=== PATIENT | male | born 1955 | race Caucasian/White ===

== ENCOUNTER 2025-10-26 09:59 | Inpatient (IN) | payer MEDICARE ==
[~2025-10-26] VITALS: Ht 162.6 cm; Wt 55.8 kg
[2025-10-26] MEDS ORDERED: MIRALAX *UNIT DOSE* 17 GM PACKET PO PRN (11:00)
[2025-10-26] MEDS ORDERED: ONDANSETRON 4MG ORAL DISINTEGRATING TAB PO PRN (11:00)
[2025-10-26] MEDS ORDERED: BISACODYL 10 MG SUPP PR PRN (11:00)
[2025-10-26] MEDS ORDERED: traMADol 50 MG TAB PO PRN (11:00)
[2025-10-26 12:23] VITALS: BP 170/72; TEMP 98.3; O2SAT 96
[2025-10-26] MEDS ORDERED: MELATAB3 PO (12:49)
[2025-10-26] MEDS ORDERED: ASPI81TA26 PO (12:49)
[2025-10-26] MEDS ORDERED: APAP325T4 PO (12:49)
[2025-10-26] MEDS ORDERED: THIA100T7 PO (12:49)
[2025-10-26] MEDS ORDERED: D3 H10003 PO (12:49)
[2025-10-26] MEDS ORDERED: THERTAB52 PO (12:49)
[2025-10-26] MEDS ORDERED: HOME MED LIST COMPLETE! XX SCH (13:10)
[2025-10-26] MEDS ORDERED: IPRATROPIUM 0.5 MG/ALBUTEROL 2.5 MG INH SOL UD 3 ML NEB PRN (13:15)
[2025-10-26] MEDS ORDERED: PILL CUTTER 1 EACH XX PRN (13:30)
[2025-10-26] MEDS: REMEDY PHYTOPLEX Z-GUARD PASTE 113GM TUBE (FROM STOREROOM PRODUCT) TOP SCH (16:33)
[2025-10-26] MEDS: ACETAMINOPHEN 500 MG TAB PO SCH (16:33)
[2025-10-26 19:40] VITALS: BP 116/59; TEMP 99.2; O2SAT 95
[2025-10-26] MEDS: DOCUSATE SODIUM 100 MG CAPSULE PO SCH (21:00)
[2025-10-26] MEDS: SENNA 8.6 MG TAB PO SCH (21:00)
[2025-10-26] MEDS: ASPIRIN 81 MG ENTERIC TABLET PO SCH (21:40)
[2025-10-26] MEDS: RAMELTEON 8 MG TAB PO SCH (21:41)
[2025-10-27] MEDS: NICOTINE 21 MG/24 HR 1 EA TRANSDERMAL TD ONE (01:14)
[2025-10-27 03:31] VITALS: BP 123/70; TEMP 97.2; O2SAT 94
[2025-10-27 07:46] LABS: BASO # 0.0 10^3/uL (0.0-0.2); BASO % 0.6 % (0.0-1.0); EOS # 0.5 10^3/uL (0.0-0.5); EOS % 7.5 % (0.0-3.0); LYMPH # 1.0 10^3/uL (1.5-5.0); LYMPH % 15.3 % (24.0-44.0); MONO # 0.6 10^3/uL (0.0-0.8); MONO % 9.3 % (2.0-8.0); NEUTROPHILS # 4.4 10^3/uL (1.5-8.5); NEUTROPHILS % 66.7 % (36.0-66.0); PLATELET COUNT, AUTOMATED 380 10^3/uL (150-450)
[2025-10-27 08:09] LABS: ALT/SGPT 32 U/L (7.0-40); AST/SGOT 45 U/L (<34); CALCIUM LEVEL 8.0 MG/DL (8.3-10.6); CARBON DIOXIDE LEVEL 29 MMOL/L (20-31); CHLORIDE LEVEL 105 MMOL/L (98-107); CREATININE FOR GFR 0.61 MG/DL (0.70-1.30); GLOMERULAR FILTRATION RATE > 90.0 (>49); POTASSIUM SERUM 4.0 MMOL/L (3.5-5.1); SODIUM LEVEL 141 MMOL/L (136-145)
[2025-10-27] MEDS: PANTOPRAZOLE 40MG TAB PO SCH (08:51)
[2025-10-27] MEDS: MULTIVITAMINS/MINERALS THERAP 1 TAB PO SCH (08:51)
[2025-10-27] MEDS: THIAMINE 100 MG TAB PO SCH (08:51)
[2025-10-27] MEDS: VITAMIN D 1,000 INTERNATIONAL UNITS TABLET PO SCH (08:52)
[2025-10-27] MEDS: SANTYL OINT 30GM TOP SCH (08:53)
[2025-10-27] MEDS: NICOTINE 7 MG/24 HR TRANSDERMAL TD SCH (08:53)
[2025-10-27 12:00] VITALS: BP 117/58; TEMP 98.7; O2SAT 99
[2025-10-27 20:00] VITALS: BP 130/70; TEMP 99; O2SAT 96
[2025-10-28 04:00] VITALS: BP 138/67; TEMP 98.1; O2SAT 97
[2025-10-28 12:00] VITALS: BP 116/59; TEMP 99.1; O2SAT 95
[2025-10-28 20:00] VITALS: TEMP 98.2; O2SAT 100
[2025-10-28] MEDS ORDERED: traZODone 50 MG TAB PO PRN (20:15)
[2025-10-28] MEDS: traMADol 50 MG TAB PO PRN (21:35)
[2025-10-28] MEDS: traZODone 50 MG TAB PO PRN (21:36)
[2025-10-29 04:00] VITALS: BP 134/62; TEMP 98.4; O2SAT 92
[2025-10-29 12:00] VITALS: BP 141/68; TEMP 98.2; O2SAT 96
[2025-10-29 20:00] VITALS: TEMP 98.6; O2SAT 97
[2025-10-30 04:00] VITALS: BP 130/68; TEMP 98.7; O2SAT 92
[2025-10-30 06:28] LABS: PLATELET COUNT, AUTOMATED 406 10^3/uL (150-450)
[2025-10-30 12:00] VITALS: BP 178/60; TEMP 98.8; O2SAT 99
[2025-10-30] MEDS ORDERED: **hydrALAZINE HCL** 25 MG TAB PO PRN (15:30)
[2025-10-30 20:00] VITALS: BP 133/57; TEMP 98.7; O2SAT 97
[2025-10-30] MEDS: traMADol 50 MG TAB PO SCH (20:05)
[2025-10-30] MEDS ORDERED: traZODone 50 MG TAB PO PRN (22:00)
[2025-10-31 04:00] VITALS: BP 130/67; TEMP 98.3; O2SAT 94
[2025-10-31] MEDS: traMADol 50 MG TAB PO SCH (06:55)
[2025-10-31 12:00] VITALS: BP 132/60; TEMP 98.2; O2SAT 97
[2025-10-31 20:00] VITALS: BP 127/59; TEMP 98.5; O2SAT 96
[2025-11-01 04:00] VITALS: BP 134/73; TEMP 98.4; O2SAT 94
[2025-11-01 12:00] VITALS: BP 130/80; TEMP 98.2; O2SAT 98
[2025-11-01 20:00] VITALS: BP 135/64; TEMP 98.1; O2SAT 98
[2025-11-02 04:00] VITALS: BP 157/69; TEMP 98.2; O2SAT 95
[2025-11-02 12:00] VITALS: BP 123/58; TEMP 98.8; O2SAT 99
[2025-11-02] MEDS ORDERED: SENN18TA PO (17:24)
[2025-11-02] MEDS ORDERED: SANT250O8 TOP (17:24)
[2025-11-02] MEDS ORDERED: COLA100C5 PO (17:24)
[2025-11-02] MEDS ORDERED: NICO7PA TD (17:24)
[2025-11-02] MEDS ORDERED: TRAM50TA2 PO (17:24)
[2025-11-02] MEDS ORDERED: PANT40TA29 PO (17:24)
[2025-11-02 20:38] VITALS: BP 142/68; TEMP 98.7; O2SAT 96
[2025-11-03 03:31] VITALS: BP 165/74; TEMP 98.2; O2SAT 94
[2025-11-03 12:00] VITALS: BP 174/80; TEMP 98.5; O2SAT 97
[2025-11-03 20:00] VITALS: BP 115/75; TEMP 98.8; O2SAT 97
[2025-11-04 04:00] VITALS: BP 131/71; TEMP 97.6; O2SAT 97
[2025-11-04 12:00] VITALS: BP 139/65; TEMP 98.6; O2SAT 96
== END 2025-11-04 19:50 | disposition home health service (06) | DRG 559 ==
LOC: M PM&R 12:23
PROVIDERS: ADMIT Physical Medicine & Rehabilitation; ATTEND Physical Medicine & Rehabilitation
DX: S72.144D Nondisplaced intertrochanteric fracture of right femur, subsequent encounter for closed fracture with routine healing (principal); L89.313 Pressure ulcer of right buttock, stage 3; D62 Acute posthemorrhagic anemia; F17.210 Nicotine dependence, cigarettes, uncomplicated; R29.6 Repeated falls; R26.89 Other abnormalities of gait and mobility; G31.84 Mild cognitive impairment of uncertain or unknown etiology; I10 Essential (primary) hypertension; S51.001D Unspecified open wound of right elbow, subsequent encounter; S51.002D Unspecified open wound of left elbow, subsequent encounter; S81.009D Unspecified open wound, unspecified knee, subsequent encounter; L89.150 Pressure ulcer of sacral region, unstageable; G47.00 Insomnia, unspecified; F10.21 Alcohol dependence, in remission; Z74.1 Need for assistance with personal care; Z74.09 Other reduced mobility; Z79.82 Long term (current) use of aspirin; Z79.899 Other long term (current) drug therapy